=== PATIENT | female | born 1960 | race African-American/Black ===

== ENCOUNTER 2018-08-29 03:44 | Inpatient (IN) | payer MEDICAID, OTHER ==
[~2018-08-29] VITALS: Ht 152.4 cm; Wt 57.4 kg
[~2018-08-29 03:44] MED LIST: ATEN50TA PO; AZAT50TA24 PO; GABA-531 PO; HYDR200T35 PO; METF500T6 PO; PRED10TA PO
[2018-08-29] MEDS ORDERED: ASPIRIN 81MG TABLET PO ONE (04:15)
[2018-08-29] MEDS: NITROGLYCERIN 0.4MG TABLET SL SL PRN (04:29)
[2018-08-29] MEDS ORDERED: MORPHINE SULFATE 4 MG/ML CPJ (NOT FOR IM USE) IV ONE ×2 (05:00→06:15)
[2018-08-29 05:19] LABS: BASOPHILS % 2.7 % (0.0-2.0); EOSINOPHILS % 0.8 % (0.0-5.0); HEMATOCRIT. 31.1 % (36.0-48.0); HEMOGLOBIN. 10.3 g/dL (12.0-16.0); LYMPHOCYTES % 39.3 % (20.0-50.0); MEAN CORPUSCULAR VOLUME 93.3 fL (81.0-99.0); MEAN PLATELET VOLUME 12.2 fl (7.4-10.4); MONOCYTES % 12.5 % (2.0-8.0); NEUTROPHILS % 44.7 % (40.0-76.0); PLATELET 97 x1000/uL (130-400); RED BLOOD CELL COUNT 3.33 mill/uL (4.2-5.4)
[2018-08-29 05:21] LABS: INR 1.1; PARTIAL THROMBOPLASTIN TIME 26.2 sec (23.4-31.0); PROTHROMBIN TIME 11.2 sec (9.1-11.1)
[2018-08-29 05:26] LABS: CHLORIDE 109 mEq/L (98-107)
[2018-08-29] MEDS ORDERED: ONDANSETRON HCL 4MG/2ML INJ IV PRN (09:15)
[2018-08-29] MEDS ORDERED: LORAZEPAM 0.5MG TABLET PO PRN (09:15)
[2018-08-29] MEDS ORDERED: ACETAMINOPHEN 325MG TABLET PO PRN (09:15)
[2018-08-29] MEDS ORDERED: IPRATROPIUM/ALBUTEROL 0.5-3(2.5)MG/3ML NEB INH PRN (09:15)
[2018-08-29] MEDS ORDERED: TRAMADOL 50MG TABLET PO PRN (10:15)
[2018-08-29 11:11] LABS: CREATINE KINASE MB FRACTION 3.5 ng/mL (0.5-3.6); PHOSPHORUS 3.3 mg/dL (2.5-4.9)
[2018-08-29] MEDS ORDERED: IPRATROPIUM/ALBUTEROL 0.5-3(2.5)MG/3ML NEB HHN PRN (13:15)
[2018-08-29 15:57] VITALS: BP 163/48
[2018-08-29 16:00] VITALS: BP 163/48
[2018-08-29] MEDS: AZATHIOPRINE 50MG TABLET PO SCH (18:25)
[2018-08-29] MEDS: PREDNISONE 10MG TABLET PO SCH (18:25)
[2018-08-29] MEDS: HYDROXYCHLOROQUINE SULFATE 200MG TABLET PO SCH (18:25)
[2018-08-29] MEDS: FUROSEMIDE 40MG/4ML VIAL IVP SCH (18:25)
[2018-08-29] MEDS ORDERED: METH2.5T MT (18:40)
[2018-08-29] MEDS ORDERED: ERGO2000 MT (18:40)
[2018-08-29] MEDS ORDERED: SIMV10TA6 MT (18:40)
[2018-08-29] MEDS ORDERED: FOLI-43 MT (18:40)
[2018-08-29] MEDS ORDERED: ALEN70SO3 PO (18:40)
[2018-08-29] MEDS ORDERED: LOSA25TA12 MT (18:40)
[2018-08-29 20:00] VITALS: BP 141/87
[2018-08-29 21:29] LABS: CLARITY URINE CLEAR (CLEAR); COLOR URINE YELLOW (YELLOW); KETONES URINE NEGATIVE (NEGATIVE); LEUKOCYTE ESTERASE URINE NEGATIVE (NEGATIVE); NITRITE URINE POSITIVE (NEGATIVE); OCCULT BLOOD URINE 1+ (NEGATIVE); PROTEIN URINE TRACE (NEGATIVE); SPECIFIC GRAVITY URINE 1.006 (1.005-1.030); UROBILINOGEN URINE 0.2 E.U./dL (0.2-1.0)
[2018-08-29 21:49] LABS: *AMPHETAMINES SCREEN URINE NEGATIVE (NEGATIVE); *BARBITURATES SCREEN URINE NEGATIVE (NEGATIVE); *BENZODIAZEPINES SCREEN URINE NEGATIVE (NEGATIVE)
[2018-08-29 21:50] LABS: *COCAINE SCREEN URINE NEGATIVE (NEGATIVE); CANNABINOID URINE SCREEN NEGATIVE (NEGATIVE); METHADONE URINE SCREEN NEGATIVE (NEGATIVE); OPIATES URINE SCREEN PRESUMTIVE POSITIVE (NEGATIVE); PHENCYCLIDINE URINE SCREEN NEGATIVE (NEGATIVE)
[2018-08-29] MEDS: GABAPENTIN 300MG CAPSULE PO SCH (21:53)
[2018-08-30] VITALS: BP 107/42
[2018-08-30 04:00] VITALS: BP 94/44
[2018-08-30] MEDS: GABAPENTIN 300MG CAPSULE PO SCH ×3 (06:19→22:11)
[2018-08-30 06:37] LABS: HEMATOCRIT. 26.9 % (36.0-48.0); HEMOGLOBIN. 9.2 g/dL (12.0-16.0); MEAN CORPUSCULAR HEMOGLOBIN 31.8 pg (28.0-32.0); MEAN PLATELET VOLUME 12.4 fl (7.4-10.4); PLATELET 93 x1000/uL (130-400); RED BLOOD CELL COUNT 2.89 mill/uL (4.2-5.4); RED CELL DISTRIBUTION WIDTH 15.8 % (11.6-14.6)
[2018-08-30 08:00] VITALS: BP 132/61
[2018-08-30] MEDS: NITROGLYCERIN 0.4MG TABLET SL SL PRN (08:57)
[2018-08-30] MEDS: ATENOLOL 50 MG TABLET PO SCH (09:00)
[2018-08-30] MEDS ORDERED: ASPIRIN 81MG TABLET PO ONE (09:00)
[2018-08-30 09:54] LABS: CHLORIDE 104 mEq/L (98-107)
[2018-08-30] MEDS: AZATHIOPRINE 50MG TABLET PO SCH (10:29)
[2018-08-30] MEDS: PREDNISONE 10MG TABLET PO SCH ×3 (10:32→17:00)
[2018-08-30] MEDS: HYDROXYCHLOROQUINE SULFATE 200MG TABLET PO SCH ×2 (10:32→16:55)
[2018-08-30] MEDS: FUROSEMIDE 40MG/4ML VIAL IVP SCH (10:33)
[2018-08-30 12:00] VITALS: BP 143/53
[2018-08-30 13:57] LABS: PLATELET ESTIMATE DECREASED
[2018-08-30] MEDS ORDERED: MAGNESIUM 2 G PREMIX 50 ML IV ONE (15:15)
[2018-08-30 16:00] VITALS: BP 99/42
[2018-08-30] MEDS ORDERED: MAGNESIUM SULFATE 2 GM in DEXTROSE 5% WATER 46 ML IV SCH (16:00)
[2018-08-30] MEDS ORDERED: DIATR MEGLU/DIATRIZOATE SOLN 30ML PO SCH (16:15)
[2018-08-30 18:36] LABS: HEPATITIS B SURFACE ANTIGEN NEGATIVE
[2018-08-30 19:05] LABS: HEPATITIS B CORE AB IGM NEGATIVE
[2018-08-30 19:06] LABS: HEPATITIS A AB IGM NEGATIVE (NEGATIVE)
[2018-08-30 20:00] VITALS: BP 113/58
[2018-08-31] VITALS: BP 125/55
[2018-08-31 04:00] VITALS: BP 104/45
[2018-08-31] MEDS: GABAPENTIN 300MG CAPSULE PO SCH ×3 (06:00→21:25)
[2018-08-31 07:03] LABS: BASOPHILS % 0.9 % (0.0-2.0); EOSINOPHILS % 0.3 % (0.0-5.0); HEMATOCRIT. 26.3 % (36.0-48.0); HEMOGLOBIN. 8.9 g/dL (12.0-16.0); LYMPHOCYTES % 17.3 % (20.0-50.0); MEAN CORPUSCULAR HEMOGLOBIN 31.7 pg (28.0-32.0); MEAN CORPUSCULAR VOLUME 93.2 fL (81.0-99.0); MONOCYTES % 13.1 % (2.0-8.0); NEUTROPHILS % 68.4 % (40.0-76.0); PLATELET 90 x1000/uL (130-400); RED BLOOD CELL COUNT 2.82 mill/uL (4.2-5.4); RED CELL DISTRIBUTION WIDTH 15.7 % (11.6-14.6)
[2018-08-31 08:00] VITALS: BP 139/61
[2018-08-31] MEDS: PREDNISONE 10MG TABLET PO SCH (09:00)
[2018-08-31] MEDS: ATENOLOL 50 MG TABLET PO SCH (09:00)
[2018-08-31] MEDS: FUROSEMIDE 40MG/4ML VIAL IVP SCH (09:47)
[2018-08-31] MEDS: HYDROXYCHLOROQUINE SULFATE 200MG TABLET PO SCH ×2 (09:47→16:54)
[2018-08-31] MEDS: AZATHIOPRINE 50MG TABLET PO SCH (09:48)
[2018-08-31 12:00] VITALS: BP 130/60
[2018-08-31] MEDS ORDERED: LIDOCAINE HCL 1% 20ML VIAL (Pyxis) INJ ONE (13:31)
[2018-08-31] MEDS ORDERED: IOHEXOL-350 100 ML BOTTLE ONE ×2 (13:58→15:21)
[2018-08-31] MEDS ORDERED: DIATR MEGLU/DIATRIZOATE SOLN 30ML ONE (13:58)
[2018-08-31 16:00] VITALS: BP 135/58
[2018-08-31] MEDS: METHYLPREDNISOLONE SOD SUCC 40 MG/ML VIAL IV SCH ×2 (16:55→23:28)
[2018-08-31 20:00] VITALS: BP 117/58
[2018-08-31] MEDS ORDERED: DEXTROSE 50% WATER 50ML SYRINGE IV PRN (21:45)
[2018-09-01 04:00] VITALS: BP 141/58
[2018-09-01] MEDS: GABAPENTIN 300MG CAPSULE PO SCH ×2 (05:45→14:39)
[2018-09-01] MEDS: METHYLPREDNISOLONE SOD SUCC 40 MG/ML VIAL IV SCH ×3 (05:45→17:58)
[2018-09-01 06:09] LABS: D-DIMER 31.33 mg/L FEU (<0.50); INR 1.2; PARTIAL THROMBOPLASTIN TIME 27.3 sec (23.4-31.0); PROTHROMBIN TIME 11.9 sec (9.1-11.1)
[2018-09-01 06:10] LABS: HEMOGLOBIN. 10.3 g/dL (12.0-16.0); MEAN CORPUSCULAR HEMOGLOBIN 31.3 pg (28.0-32.0); MEAN CORPUSCULAR VOLUME 93.9 fL (81.0-99.0); MEAN PLATELET VOLUME 12.2 fl (7.4-10.4); PLATELET 97 x1000/uL (130-400); RED CELL DISTRIBUTION WIDTH 15.5 % (11.6-14.6)
[2018-09-01] MEDS: BLOOD SUGAR DIAGNOSTIC STRIP TEST SCH ×3 (06:37→16:45)
[2018-09-01] MEDS: INSULIN LISPRO 100 UNITS/ML SUBCUT SCH ×3 (06:43→17:15)
[2018-09-01 06:48] LABS: CHLORIDE 103 mEq/L (98-107)
[2018-09-01] MEDS: HYDROXYCHLOROQUINE SULFATE 200MG TABLET PO SCH ×2 (10:16→17:58)
[2018-09-01] MEDS: FUROSEMIDE 40MG/4ML VIAL IVP SCH (10:16)
[2018-09-01] MEDS: AZATHIOPRINE 50MG TABLET PO SCH (10:17)
[2018-09-01] MEDS: ATENOLOL 50 MG TABLET PO SCH (10:17)
[2018-09-01 10:32] LABS: NUCLEATED RED BLOOD CELLS 2 /100 WBC; PLATELET ESTIMATE DECREASED
[2018-09-01] MEDS ORDERED: LOSARTAN POTASSIUM 25 MG TABLET PO SCH (11:00)
[2018-09-01] MEDS ORDERED: POTA10CA42 MT (11:03)
[2018-09-01] MEDS ORDERED: FURO-151 MT (11:03)
[2018-09-01] MEDS ORDERED: IOHEXOL-350 100 ML BOTTLE ONE (11:52)
[2018-09-01 12:00] VITALS: BP 143/59
[2018-09-01 16:00] VITALS: BP 135/55
[2018-09-01 16:16] VITALS: BP 135/55
[2018-09-01 19:07] LABS: ANTI-DNA DOUBLE STRANDED QUANT 31 IU/mL (0-9); RNP ANTIBODY 1.3 AI (0.0-0.9); SMITH ANTIBODY 0.9 AI (0.0-0.9)
[2018-09-02 07:17] LABS: COMPLEMENT C3 104 mg/dL (82-167)
[2018-09-02 08:20] LABS: LUPUS ANTICOAG INTERPRETATION Comment: (.); PTT-LA 38.6 sec (0.0-51.9)
[2018-09-02] MEDS ORDERED: ATENOLOL 25MG TABLET PO SCH (09:00)
[2018-09-02 13:11] LABS: ANTI-MYELOPEROXIDASE AB < 9.0 U/mL (0.0-9.0); ANTI-PROTEINASE 3 ABS < 3.5 U/mL (0.0-3.5)
[2018-09-03 09:09] LABS: ANA IFA Positive (.); CYC CITRULLINATED PEP IgG/IgA > 250 units (0-19)
[2018-09-04 04:09] LABS: ANTI-CARDIOLIPIN AB IGA 9 APL U/mL (0-11); ANTI-CARDIOLIPIN AB IGG 11 GPL U/mL (0-14); ANTI-CARDIOLIPIN AB IGM < 9 MPL U/mL (0-12)
[2018-09-05 13:06] LABS: ATYPICAL P-ANCA <1:20 titer (Neg:<1:20); CYTOPLASMIC C-ANCA <1:20 titer (Neg:<1:20); PERINUCLEAR P-ANCA <1:20 titer (Neg:<1:20)
== END 2018-09-01 18:25 | disposition home or self-care (01) | DRG 346 ==
LOC: ER 03:44 → 5WST 05:01 → EDBEDREQ 05:03 → EDBEDREQTM 05:03 → ENRESERV 14:07
PROVIDERS: ADMIT Internal Medicine; ATTEND Internal Medicine
PROC: 02HV33Z Insertion of Infusion Device into Superior Vena Cava, Percutaneous Approach (ICD-10-PCS; principal; 2018-08-31)
PROC: B518ZZA Fluoroscopy of Superior Vena Cava, Guidance (ICD-10-PCS; 2018-08-31)
PROC: B548ZZA Ultrasonography of Superior Vena Cava, Guidance (ICD-10-PCS; 2018-08-31)
DX: M32.13 Lung involvement in systemic lupus erythematosus (principal); J96.00 Acute respiratory failure, unspecified whether with hypoxia or hypercapnia; E43 Unspecified severe protein-calorie malnutrition; I50.31 Acute diastolic (congestive) heart failure; D68.61 Antiphospholipid syndrome; D69.6 Thrombocytopenia, unspecified; I27.20 Pulmonary hypertension, unspecified; D57.1 Sickle-cell disease without crisis; M51.06 Intervertebral disc disorders with myelopathy, lumbar region; I11.0 Hypertensive heart disease with heart failure; R18.8 Other ascites; N39.0 Urinary tract infection, site not specified; D50.9 Iron deficiency anemia, unspecified; E11.9 Type 2 diabetes mellitus without complications; D72.810 Lymphocytopenia; M32.19 Other organ or system involvement in systemic lupus erythematosus; R07.89 Other chest pain; R51 Headache; K44.9 Diaphragmatic hernia without obstruction or gangrene; K75.4 Autoimmune hepatitis; K76.0 Fatty (change of) liver, not elsewhere classified; M06.9 Rheumatoid arthritis, unspecified; M13.0 Polyarthritis, unspecified; R74.0 Nonspecific elevation of levels of transaminase and lactic acid dehydrogenase [LDH]; M35.00 Sjogren syndrome, unspecified; Z82.3 Family history of stroke; Z82.49 Family history of ischemic heart disease and other diseases of the circulatory system; Z83.3 Family history of diabetes mellitus; Z86.14 Personal history of Methicillin resistant Staphylococcus aureus infection; Z90.49 Acquired absence of other specified parts of digestive tract; Z90.81 Acquired absence of spleen; Z68.24 Body mass index [BMI] 24.0-24.9, adult; Z88.6 Allergy status to analgesic agent; Z79.899 Other long term (current) drug therapy
CPT/HCPCS: 36415; 36569; 70496; 71045; 71275; 74177; 76705; 76937; 77001; 80048; 80053; 80061; 80305; 81003; 82550; 82553; 82728; 82962; 83036; 83520; 83540; 83550; 83690; 83735; 83880; 84100; 84443; 84484; 85025; 85044; 85379; 85610; 85613; 85651; 85730; 85732; 86140; 86147; 86160; 86200; 86225; 86235; 86256; 86431; 86592; 86705; 86709; 86780; 86803; 86880; 87340; 93005; 93306; 96374; 96375; 96376; 99285; C1725; C1769; J1815; J1940; J2270; J2405; J2920; J3475; J3490; J7040; J7050; J7060; J7500; J7512; Q9963; Q9967

== ENCOUNTER 2018-09-29 00:16 | Inpatient (IN) | payer MEDICAID, OTHER ==
[~2018-09-29] VITALS: Ht 162.6 cm; Wt 59.0 kg
[~2018-09-29 00:16] MED LIST changes: +ALEN70SO3 PO; +ERGO2000 MT; +FOLI-43 MT; +FURO-151 MT; +LOSA25TA12 MT; +METF-414 PO; -METF500T6 PO; +POTA10CA42 MT
[2018-09-29 03:05] LABS: CHLORIDE 108 mEq/L (98-107)
[2018-09-29 03:27] LABS: HEMATOCRIT. 31.1 % (36.0-48.0); HEMOGLOBIN. 10.5 g/dL (12.0-16.0); MEAN CORPUSCULAR HEMOGLOBIN 31.7 pg (28.0-32.0); MEAN CORPUSCULAR VOLUME 93.8 fL (81.0-99.0); MEAN PLATELET VOLUME 11.7 fl (7.4-10.4); PLATELET 116 x1000/uL (130-400); RED BLOOD CELL COUNT 3.31 mill/uL (4.2-5.4); RED CELL DISTRIBUTION WIDTH 16.2 % (11.6-14.6)
[2018-09-29 03:30] LABS: INR 1.1; PARTIAL THROMBOPLASTIN TIME 27.1 sec (23.4-31.0); PROTHROMBIN TIME 11.4 sec (9.1-11.1)
[2018-09-29 04:13] LABS: PLATELET ESTIMATE DECREASED
[2018-09-29] MEDS ORDERED: ONDANSETRON HCL 4MG/2ML INJ IV SCH (04:40)
[2018-09-29] MEDS ORDERED: ALBUTEROL (0.083%) 2.5MG/3ML NEB HHN STA (05:35)
[2018-09-29] MEDS ORDERED: IPRATROPIUM BROMIDE (0.02%) 0.5MG/2.5ML NEB HHN STA (05:35)
[2018-09-29] MEDS ORDERED: MORPHINE SULFATE 2 MG/ML CPJ (NOT FOR IM USE) IV ONE (05:45)
[2018-09-29] MEDS ORDERED: LOSA25TA12 MT (08:22)
[2018-09-29] MEDS ORDERED: ATEN50TA PO (08:22)
[2018-09-29] MEDS ORDERED: METF-414 MT (08:22)
[2018-09-29 08:30] VITALS: BP 113/51
[2018-09-29] MEDS ORDERED: METH2.5T MT (08:30)
[2018-09-29] MEDS ORDERED: SIMV10TA6 MT (08:30)
[2018-09-29] MEDS ORDERED: ALEN70TA3 MT (08:30)
[2018-09-29] MEDS ORDERED: ERGO500013 MT (08:30)
[2018-09-29] MEDS ORDERED: IPRATROPIUM/ALBUTEROL 0.5-3(2.5)MG/3ML NEB HHN PRN (09:45)
[2018-09-29] MEDS ORDERED: ACETAMINOPHEN 325MG TABLET PO PRN (09:45)
[2018-09-29] MEDS ORDERED: MAGNESIUM/ALUMINUM HYDROXIDE/SIMETHICONE 30ML UDC PO PRN ×2 (09:45→17:30)
[2018-09-29] MEDS ORDERED: ONDANSETRON HCL 4MG/2ML INJ IV PRN (09:45)
[2018-09-29] MEDS ORDERED: CLONIDINE 0.1MG TABLET PO PRN (09:45)
[2018-09-29] MEDS ORDERED: FUROSEMIDE 40MG/4ML VIAL IVP NR (10:00)
[2018-09-29 10:44] VITALS: BP 113/51
[2018-09-29 12:00] VITALS: BP 117/60
[2018-09-29] MEDS: SODIUM CHLORIDE 0.9% INJ 3ML FLUSH IVF SCH ×2 (14:06→21:21)
[2018-09-29 16:00] VITALS: BP 121/33
[2018-09-29] MEDS ORDERED: DEXTROSE 50% WATER 50ML SYRINGE IV PRN (17:30)
[2018-09-29] MEDS ORDERED: TRAMADOL 50MG TABLET PO PRN (17:30)
[2018-09-29] MEDS: INSULIN LISPRO 100 UNITS/ML SUBCUT SCH ×2 (17:40→21:15)
[2018-09-29] MEDS: HYDROXYCHLOROQUINE SULFATE 200MG TABLET PO SCH (17:43)
[2018-09-29] MEDS: METHYLPREDNISOLONE SOD SUCC 40 MG/ML VIAL IV SCH (17:43)
[2018-09-29 20:00] VITALS: BP 118/54
[2018-09-29] MEDS ORDERED: FAMOTIDINE 20MG TABLET PO SCH (21:00)
[2018-09-29] MEDS: BLOOD SUGAR DIAGNOSTIC STRIP TEST SCH (21:07)
[2018-09-29] MEDS: IPRATROPIUM/ALBUTEROL 0.5-3(2.5)MG/3ML NEB HHN SCH (21:41)
[2018-09-30] VITALS: BP 114/48
[2018-09-30] MEDS: IPRATROPIUM/ALBUTEROL 0.5-3(2.5)MG/3ML NEB HHN SCH ×3 (01:50→14:14)
[2018-09-30 04:00] VITALS: BP 103/52
[2018-09-30] MEDS: METHYLPREDNISOLONE SOD SUCC 40 MG/ML VIAL IV SCH ×3 (05:29→11:43)
[2018-09-30] MEDS: SODIUM CHLORIDE 0.9% INJ 3ML FLUSH IVF SCH ×2 (05:30→14:42)
[2018-09-30] MEDS: BLOOD SUGAR DIAGNOSTIC STRIP TEST SCH ×3 (05:32→17:27)
[2018-09-30] MEDS: INSULIN LISPRO 100 UNITS/ML SUBCUT SCH ×3 (06:40→17:27)
[2018-09-30 08:00] VITALS: BP 103/55
[2018-09-30] MEDS: HYDROXYCHLOROQUINE SULFATE 200MG TABLET PO SCH ×2 (08:23→17:18)
[2018-09-30 12:00] VITALS: BP 103/57
[2018-09-30 14:07] VITALS: BP 112/61
[2018-09-30 16:00] VITALS: BP 110/53
== END 2018-09-30 17:32 | disposition home or self-care (01) | DRG 133 ==
LOC: EDUNIT# 00:59 → ER 00:59 → 8WST 05:01 → EDBEDREQTM 05:03 → EDBEDREQ 05:03 → ENRESERV 07:05
PROVIDERS: ADMIT Internal Medicine; ATTEND Internal Medicine
PROC: 0W9930Z Drainage of Right Pleural Cavity with Drainage Device, Percutaneous Approach (ICD-10-PCS; principal; 2018-09-29)
DX: J96.00 Acute respiratory failure, unspecified whether with hypoxia or hypercapnia (principal); D68.61 Antiphospholipid syndrome; E44.0 Moderate protein-calorie malnutrition; J90 Pleural effusion, not elsewhere classified; D57.1 Sickle-cell disease without crisis; D69.6 Thrombocytopenia, unspecified; E87.70 Fluid overload, unspecified; M32.9 Systemic lupus erythematosus, unspecified; D50.9 Iron deficiency anemia, unspecified; E11.9 Type 2 diabetes mellitus without complications; D72.810 Lymphocytopenia; I10 Essential (primary) hypertension; K75.4 Autoimmune hepatitis; K44.9 Diaphragmatic hernia without obstruction or gangrene; M19.019 Primary osteoarthritis, unspecified shoulder; M35.00 Sjogren syndrome, unspecified; M51.16 Intervertebral disc disorders with radiculopathy, lumbar region; Z82.3 Family history of stroke; Z82.49 Family history of ischemic heart disease and other diseases of the circulatory system; Z83.3 Family history of diabetes mellitus; Z90.49 Acquired absence of other specified parts of digestive tract; Z68.22 Body mass index [BMI] 22.0-22.9, adult
CPT/HCPCS: 32555; 36415; 71045; 82040; 82962; 83605; 83615; 83880; 84484; 88108; 88312; 94640; 96374; 99285; J1815; J1940; J2270; J2405; J2920; J7611; J7620

== ENCOUNTER 2018-11-11 20:25 | Inpatient (IN) | payer MEDICAID, OTHER ==
[~2018-11-11] VITALS: Ht 165.1 cm; Wt 51.3 kg
[~2018-11-11 20:25] MED LIST changes: -ALEN70SO3 PO; +ALEN70TA3 MT; -ATEN50TA PO; -AZAT50TA24 PO; -ERGO2000 MT; +ERGO500013 MT; -FURO-151 MT; +METF-414 MT; -METF-414 PO; +METH2.5T MT; -POTA10CA42 MT; -PRED10TA PO; +SIMV10TA6 MT
[2018-11-11] MEDS ORDERED: ONDANSETRON HCL 4MG/2ML INJ IV STA (22:37)
[2018-11-12 01:00] LABS: HEMATOCRIT. 21.6 % (36.0-48.0); HEMOGLOBIN. 7.2 g/dL (12.0-16.0); MEAN CORPUSCULAR VOLUME 96.3 fL (81.0-99.0); MEAN PLATELET VOLUME 13.1 fl (7.4-10.4); PLATELET 86 x1000/uL (130-400); RED BLOOD CELL COUNT 2.24 mill/uL (4.2-5.4)
[2018-11-12 01:02] LABS: CHLORIDE 109 mEq/L (98-107)
[2018-11-12 01:55] LABS: NUCLEATED RED BLOOD CELLS 15 /100 WBC
[2018-11-12 01:56] LABS: PLATELET ESTIMATE DECREASED
[2018-11-12] MEDS ORDERED: ASPIRIN 325MG EC TABLET PO NR (02:30)
[2018-11-12 08:00] VITALS: BP 101/32
[2018-11-12 09:43] VITALS: BP 98/51
[2018-11-12] MEDS ORDERED: ATEN50TA MT (10:49)
[2018-11-12] MEDS ORDERED: PRED10TA23 PO (10:55)
[2018-11-12] MEDS ORDERED: HYDR200T80 MT (10:55)
[2018-11-12] MEDS ORDERED: ONDANSETRON HCL 4MG/2ML INJ IV PRN (11:45)
[2018-11-12] MEDS ORDERED: DOCUSATE SODIUM 100MG CAPSULE PO PRN (11:45)
[2018-11-12] MEDS ORDERED: CLONIDINE 0.1MG TABLET PO PRN (11:45)
[2018-11-12] MEDS ORDERED: HYDROCODONE/ACETAMINOPHEN 5/325MG TABLET PO PRN ×2 (11:45→12:15)
[2018-11-12] MEDS ORDERED: MAGNESIUM/ALUMINUM HYDROXIDE/SIMETHICONE 30ML UDC PO PRN (11:45)
[2018-11-12] MEDS ORDERED: IPRATROPIUM/ALBUTEROL 0.5-3(2.5)MG/3ML NEB INH PRN (11:45)
[2018-11-12 12:00] VITALS: BP 89/28
[2018-11-12] MEDS ORDERED: LOSARTAN POTASSIUM 25 MG TABLET PO SCH (12:30)
[2018-11-12] MEDS ORDERED: METOPROLOL TARTRATE 50MG TABLET PO SCH (12:30)
[2018-11-12] MEDS ORDERED: INFLUENZA VACCINE IM ONE (13:00)
[2018-11-12] MEDS ORDERED: SODIUM CHLORIDE 0.9% 500 ML IV ONE (14:15)
[2018-11-12] MEDS: PANTOPRAZOLE SODIUM 40 MG/VIAL IV SCH (15:27)
[2018-11-12 16:00] VITALS: BP 94/41
[2018-11-12 17:43] LABS: CREATINE KINASE MB FRACTION 3.4 ng/mL (0.5-3.6)
[2018-11-12] MEDS: HYDROXYCHLOROQUINE SULFATE 200MG TABLET PO SCH (17:53)
[2018-11-12] MEDS ORDERED: PREDNISONE 10MG TABLET PO SCH (18:10)
[2018-11-12] MEDS ORDERED: METFORMIN HCL 500MG TABLET PO SCH (18:10)
[2018-11-12 20:00] VITALS: BP 97/59
[2018-11-12] MEDS: METOPROLOL TARTRATE 25MG TABLET PO SCH (21:00)
[2018-11-12] MEDS: ATORVASTATIN CALCIUM 10MG TABLET PO SCH (21:09)
[2018-11-12] MEDS: ACETAMINOPHEN 325MG TABLET PO PRN (21:10)
[2018-11-12] MEDS: AZATHIOPRINE 50MG TABLET PO SCH (21:15)
[2018-11-12] MEDS: METHYLPREDNISOLONE SOD SUCC 40 MG/ML VIAL IV SCH (21:39)
[2018-11-12 22:21] LABS: CREATINE KINASE MB FRACTION 3.4 ng/mL (0.5-3.6)
[2018-11-12 22:54] LABS: CLARITY URINE CLOUDY (CLEAR); COLOR URINE YELLOW (YELLOW); KETONES URINE NEGATIVE (NEGATIVE); LEUKOCYTE ESTERASE URINE 2+ (NEGATIVE); NITRITE URINE NEGATIVE (NEGATIVE); OCCULT BLOOD URINE TRACE (NEGATIVE); PROTEIN URINE NEGATIVE (NEGATIVE); SPECIFIC GRAVITY URINE 1.011 (1.005-1.030)
[2018-11-12] MEDS ORDERED: DEXTROSE 50% WATER 50ML SYRINGE IV PRN (23:00)
[2018-11-13] VITALS (14 sets, daily range): BP systolic 96–110; BP diastolic 43–60
[2018-11-13] MEDS: METHYLPREDNISOLONE SOD SUCC 40 MG/ML VIAL IV SCH ×3 (05:32→21:14)
[2018-11-13] MEDS: BLOOD SUGAR DIAGNOSTIC STRIP TEST SCH ×4 (06:39→21:14)
[2018-11-13 06:47] LABS: MEAN CORPUSCULAR HEMOGLOBIN 32.8 pg (28.0-32.0); MEAN CORPUSCULAR VOLUME 94.4 fL (81.0-99.0); MEAN PLATELET VOLUME 12.1 fl (7.4-10.4); RED BLOOD CELL COUNT 2.05 mill/uL (4.2-5.4); RED CELL DISTRIBUTION WIDTH 18.3 % (11.6-14.6)
[2018-11-13 07:27] LABS: CHLORIDE 111 mEq/L (98-107)
[2018-11-13 07:44] LABS: PHOSPHORUS 2.8 mg/dL (2.5-4.9)
[2018-11-13 07:48] LABS: HDL CHOLESTEROL 33 mg/dL (40-59); LDL CHOLESTEROL 55 mg/dL (5-100)
[2018-11-13 07:49] LABS: HEMATOCRIT. 19.3 % (36.0-48.0); HEMOGLOBIN. 6.7 g/dL (12.0-16.0); T4 FREE 1.39 ng/dL (0.76-1.46)
[2018-11-13 07:50] LABS: PLATELET 44 x1000/uL (130-400)
[2018-11-13] MEDS: METOPROLOL TARTRATE 25MG TABLET PO SCH ×2 (09:00→20:49)
[2018-11-13 09:55] LABS: NUCLEATED RED BLOOD CELLS 20 /100 WBC; PLATELET ESTIMATE MARKEDLY DECREASED
[2018-11-13] MEDS: PANTOPRAZOLE SODIUM 40 MG/VIAL IV SCH ×2 (11:05→20:42)
[2018-11-13] MEDS: HYDROXYCHLOROQUINE SULFATE 200MG TABLET PO SCH ×2 (11:05→17:32)
[2018-11-13] MEDS: AZATHIOPRINE 50MG TABLET PO SCH ×2 (11:05→20:49)
[2018-11-13] MEDS: INSULIN LISPRO 100 UNITS/ML SUBCUT SCH ×3 (12:07→21:00)
[2018-11-13] MEDS ORDERED: MAGNESIUM 2 G PREMIX 50 ML IV SCH (14:00)
[2018-11-13] MEDS: SODIUM CHLORIDE 0.9% 1,000 ML IV SCH (16:04)
[2018-11-13] MEDS: ACETAMINOPHEN 325MG TABLET PO PRN (19:07)
[2018-11-13] MEDS ORDERED: DIPHENHYDRAMINE 50MG/ML VIAL IV PRN (20:30)
[2018-11-13 20:42] LABS: TOTAL IRON BINDING CAPACITY 199 ug/dL (250-450)
[2018-11-13] MEDS: ATORVASTATIN CALCIUM 10MG TABLET PO SCH (20:42)
[2018-11-14] VITALS (8 sets, daily range): BP systolic 95–109; BP diastolic 40–56
[2018-11-14] MEDS: SODIUM CHLORIDE 0.9% 1,000 ML IV SCH ×2 (02:35→19:43)
[2018-11-14] MEDS: BLOOD SUGAR DIAGNOSTIC STRIP TEST SCH ×4 (06:28→21:39)
[2018-11-14] MEDS: METHYLPREDNISOLONE SOD SUCC 40 MG/ML VIAL IV SCH ×3 (06:43→19:18)
[2018-11-14] MEDS: INSULIN LISPRO 100 UNITS/ML SUBCUT SCH ×4 (08:10→21:00)
[2018-11-14] MEDS: METOPROLOL TARTRATE 25MG TABLET PO SCH (09:00)
[2018-11-14] MEDS: PANTOPRAZOLE SODIUM 40 MG/VIAL IV SCH ×2 (09:18→20:36)
[2018-11-14] MEDS: HYDROXYCHLOROQUINE SULFATE 200MG TABLET PO SCH ×2 (09:24→19:19)
[2018-11-14] MEDS: AZATHIOPRINE 50MG TABLET PO SCH ×2 (09:24→20:37)
[2018-11-14 11:23] LABS: INR 1.1; PROTHROMBIN TIME 11.3 sec (9.1-11.1)
[2018-11-14 11:44] LABS: PHOSPHORUS 2.8 mg/dL (2.5-4.9)
[2018-11-14 11:59] LABS: HEMOGLOBIN. 8.7 g/dL (12.0-16.0); MEAN CORPUSCULAR HEMOGLOBIN 32.2 pg (28.0-32.0); MEAN CORPUSCULAR VOLUME 92.9 fL (81.0-99.0); RED BLOOD CELL COUNT 2.69 mill/uL (4.2-5.4); RED CELL DISTRIBUTION WIDTH 18.2 % (11.6-14.6)
[2018-11-14 13:01] LABS: MEAN PLATELET VOLUME 12.5 fl (7.4-10.4); PLATELET 42 x1000/uL (130-400)
[2018-11-14 13:03] LABS: NUCLEATED RED BLOOD CELLS 21 /100 WBC; PLATELET ESTIMATE MARKEDLY DECREASED
[2018-11-14] MEDS ORDERED: SODIUM POLYSTYRENE SULFONATE 15 G/60 ML BOT PO NR (13:15)
[2018-11-14] MEDS: FOLIC ACID 1MG TABLET PO SCH (16:43)
[2018-11-14] MEDS: ATORVASTATIN CALCIUM 10MG TABLET PO SCH (20:37)
[2018-11-15] VITALS: BP 113/56
[2018-11-15 00:29] LABS: HEMATOCRIT 24.7 % (36.0-48.0); HEMOGLOBIN 8.3 g/dL (12.0-16.0)
[2018-11-15 00:55] LABS: INR 1.2; PROTHROMBIN TIME 11.7 sec (9.1-11.1)
[2018-11-15 04:00] VITALS: BP 108/60
[2018-11-15] MEDS: METHYLPREDNISOLONE SOD SUCC 40 MG/ML VIAL IV SCH ×2 (05:35→12:39)
[2018-11-15] MEDS: BLOOD SUGAR DIAGNOSTIC STRIP TEST SCH ×3 (05:44→18:18)
[2018-11-15 06:31] LABS: HEMATOCRIT. 24.2 % (36.0-48.0); HEMOGLOBIN. 8.2 g/dL (12.0-16.0); MEAN CORPUSCULAR HEMOGLOBIN 31.2 pg (28.0-32.0); MEAN CORPUSCULAR VOLUME 91.8 fL (81.0-99.0); MEAN PLATELET VOLUME 8.9 fl (7.4-10.4); PLATELET 96 x1000/uL (130-400); RED BLOOD CELL COUNT 2.63 mill/uL (4.2-5.4); RED CELL DISTRIBUTION WIDTH 18.3 % (11.6-14.6)
[2018-11-15 07:08] LABS: CHLORIDE 112 mEq/L (98-107)
[2018-11-15 07:14] LABS: PHOSPHORUS 3.6 mg/dL (2.5-4.9)
[2018-11-15 08:00] VITALS: BP 114/49
[2018-11-15] MEDS: INSULIN LISPRO 100 UNITS/ML SUBCUT SCH ×3 (08:10→18:10)
[2018-11-15 09:10] LABS: COMPLEMENT C3 100 mg/dL (82-167)
[2018-11-15] MEDS: PANTOPRAZOLE SODIUM 40 MG/VIAL IV SCH (09:31)
[2018-11-15] MEDS: AZATHIOPRINE 50MG TABLET PO SCH (09:32)
[2018-11-15] MEDS: HYDROXYCHLOROQUINE SULFATE 200MG TABLET PO SCH ×2 (09:32→18:57)
[2018-11-15] MEDS: SODIUM CHLORIDE 0.9% 1,000 ML IV SCH ×2 (09:32→09:33)
[2018-11-15] MEDS: FOLIC ACID 1MG TABLET PO SCH (09:32)
[2018-11-15 12:00] VITALS: BP 122/60
[2018-11-15] MEDS ORDERED: LIDOCAINE HCL 1% 20ML VIAL (Pyxis) INJ ONE (14:12)
[2018-11-15] MEDS ORDERED: SODIUM BICARBONATE 4% (2.4MEQ) 5ML VIAL IV ONE (14:14)
[2018-11-15 16:00] VITALS: BP 122/60
[2018-11-15] MEDS ORDERED: CEFTRIAXONE 1 G PREMIX 50 ML IV SCH (16:00)
[2018-11-15] MEDS: ALBUMIN HUMAN 25GM/500ML (5%) IV NR ×2 (18:00→18:58)
[2018-11-15] MEDS: METHYLPREDNISOLONE SOD SUCC 125 MG/2 ML VIAL IV SCH ×2 (18:00→18:58)
[2018-11-16 07:37] LABS: NUCLEATED RED BLOOD CELLS 22 /100 WBC
[2018-11-16 07:38] LABS: PLATELET ESTIMATE DECREASED
[2018-11-16 13:06] LABS: ANTI-DNA DOUBLE STRANDED QUANT 19 IU/mL (0-9); RNP ANTIBODY 0.7 AI (0.0-0.9); SMITH ANTIBODY 0.3 AI (0.0-0.9)
[2018-11-16 15:08] LABS: ANTI-CARDIOLIPIN AB IGA 10 APL U/mL (0-11); ANTI-CARDIOLIPIN AB IGG < 9 GPL U/mL (0-14); ANTI-CARDIOLIPIN AB IGM < 9 MPL U/mL (0-12)
[2018-11-16 19:06] LABS: ANA IFA Negative (.)
[2018-11-17 09:06] LABS: SACCHAROMYCES CEREVISIAE IGG 77.7 Units (0.0-24.9)
[2018-11-17 13:06] LABS: ATYPICAL pANCA <1:20 titer (Neg:<1:20)
[2018-11-17 13:06] LABS: ANTI-MYELOPEROXIDASE AB < 9.0 U/mL (0.0-9.0); ANTI-PROTEINASE 3 ABS < 3.5 U/mL (0.0-3.5); ATYPICAL P-ANCA <1:20 titer (Neg:<1:20); CYTOPLASMIC C-ANCA <1:20 titer (Neg:<1:20); PERINUCLEAR P-ANCA <1:20 titer (Neg:<1:20)
== END 2018-11-15 21:21 | disposition left against medical advice (07) | DRG 346 ==
LOC: ER 20:25 → 7WST 11-12 02:42 → ENRESERV 11-12 06:59
PROVIDERS: ADMIT Internal Medicine; ATTEND Internal Medicine
PROC: 30233N1 Transfusion of Nonautologous Red Blood Cells into Peripheral Vein, Percutaneous Approach (ICD-10-PCS; 2018-11-13)
PROC: 30233R1 Transfusion of Nonautologous Platelets into Peripheral Vein, Percutaneous Approach (ICD-10-PCS; principal; 2018-11-14)
PROC: 0W9G3ZZ Drainage of Peritoneal Cavity, Percutaneous Approach (ICD-10-PCS; 2018-11-15)
DX: M32.9 Systemic lupus erythematosus, unspecified (principal); N17.0 Acute kidney failure with tubular necrosis; E43 Unspecified severe protein-calorie malnutrition; J90 Pleural effusion, not elsewhere classified; D61.818 Other pancytopenia; K92.0 Hematemesis; K86.2 Cyst of pancreas; I95.9 Hypotension, unspecified; N39.0 Urinary tract infection, site not specified; D68.61 Antiphospholipid syndrome; E83.42 Hypomagnesemia; Z53.21 Procedure and treatment not carried out due to patient leaving prior to being seen by health care provider; E11.22 Type 2 diabetes mellitus with diabetic chronic kidney disease; D57.1 Sickle-cell disease without crisis; I12.9 Hypertensive chronic kidney disease with stage 1 through stage 4 chronic kidney disease, or unspecified chronic kidney disease; E78.00 Pure hypercholesterolemia, unspecified; E78.5 Hyperlipidemia, unspecified; E87.5 Hyperkalemia; K44.9 Diaphragmatic hernia without obstruction or gangrene; M06.9 Rheumatoid arthritis, unspecified; M13.0 Polyarthritis, unspecified; M35.00 Sjogren syndrome, unspecified; M51.16 Intervertebral disc disorders with radiculopathy, lumbar region; N18.3 Chronic kidney disease, stage 3 (moderate); R18.8 Other ascites; Z82.3 Family history of stroke; Z82.49 Family history of ischemic heart disease and other diseases of the circulatory system; Z83.3 Family history of diabetes mellitus; Z90.49 Acquired absence of other specified parts of digestive tract; Z90.81 Acquired absence of spleen; Z68.1 Body mass index [BMI] 19.9 or less, adult; Z88.8 Allergy status to other drugs, medicaments and biological substances; Z88.6 Allergy status to analgesic agent; Z79.84 Long term (current) use of oral hypoglycemic drugs; Z79.899 Other long term (current) drug therapy
CPT/HCPCS: 36415; 36430; 49083; 71045; 74176; 80048; 80061; 82270; 82550; 82553; 82607; 82728; 82746; 82962; 83520; 83540; 83550; 83735; 83880; 84100; 84145; 84439; 84443; 84481; 84484; 85014; 85018; 85049; 85384; 85651; 86147; 86160; 86225; 86235; 86256; 86671; 86850; 86880; 86900; 86920; 87045; 89055; 93005; 93306; 93970; 96361; 96374; 97162; 99285; C1893; C9113; J0696; J1200; J1815; J2405; J2920; J2930; J3475; J3490; J7030; J7050; J7500; J7512; J7620; P9016; P9034; P9041